=== PATIENT | female | born 1970 | race African-American/Black ===

== ENCOUNTER 2019-01-28 00:03 | Emergency (ER) | payer SELFPAY ==
[~2019-01-28] VITALS: Ht 162.6 cm; Wt 100.0 kg
[2019-01-28 02:07] VITALS: BP 138/87
== END 2019-01-28 02:08 | disposition home or self-care (01) ==
LOC: ER 00:03
DX: M79.89 Other specified soft tissue disorders (principal)
CPT/HCPCS: 99284